=== PATIENT | male | born 1990 | race Caucasian/White ===

== ENCOUNTER 2020-01-28 19:09 | Emergency (ER) | payer OTHER, SELFPAY ==
--- NOTE | ~2020-01-28 | CT_ITS ---
EXAMINATION: CT abdomen pelvis w con INDICATION: Left-sided abdominal and flank pain TECHNIQUE: Computed tomographic images of the abdomen and pelvis were obtained after the administrati on of 100 cc of Omnipaque 350 intravenous contrast. The dose-length product (DLP) was 836.51 mGy-cm. Automated exposure control and iterative reconstruction technique were employed. COMPARISON: None available FINDINGS: The lung bases are clear. The heart size is normal. Mild bilateral gynecomastia is noted. T he liver, spleen, pancreas, gallbladder, and adrenal glands are normal. Hypoattenuating lesions in th e kidneys, measuring up to 6 mm on the right, are too small to characterize but likely represent cyst s. No stones are identified in the kidneys, ureters, or bladder. There is no hydronephrosis or hydrou reter. The appendix is normal. No pathologically enlarged abdominal or pelvic lymph nodes are identif ied. There is no free intraperitoneal gas or evidence of bowel obstruction. There is widespread submu cosal fat deposition throughout the large and small bowel. There is subtle fat stranding near the mid descending colon of unclear significance as the adjacent bowel has a normal appearance. The visualiz ed osseous structures are unremarkable. IMPRESSION: 1. Subtle fat stranding near the mid descending colon of unclear significance given the normal-appear ing adjacent bowel. 2. Widespread submucosal fat deposition in the large and small bowel which is a nonspecific finding b ut can be seen in the setting of inflammatory bowel disease. Clinically correlate. Reviewed, dictated and finalized at location [facility]. IMPRESSION: 1. Subtle fat stranding near the mid descending colon of unclear significance g iven the normal-appearing adjacent bowel. 2. Widespread submucosal fat deposition in the large and small bowel which is a nonspecific finding but can be seen in the setting of inflammatory bowel disea se. Clinically correlate.
[2020-01-28 19:10] VITALS: BP 124/83; PULSE 89; RESP 18; TEMP 36.7; O2SAT 100
[2020-01-28 19:46] LABS: Basophils Absolute Auto 0.1 K/mm3 (0.0-0.1); Basophils Percent Auto 0.8 % (0.2-1.2); Eosinophils Percent Auto 0.4 % (0-4.4); Hematocrit 45.8 % (42.0-52.0); Hemoglobin 16.2 g/dL (14.0-18.0); Immature Granulocyte Absolute 0.01 K/mm3 (0.00-0.031); Immature Granulocyte Percent A 0.1 % (0-0.5); Lymphocytes Absolute Auto 2.03 K/mm3 (0.9-3.2); Lymphocytes Percent Auto 27.9 % (18.3-44.2); Mean Corpuscular HGB Conc 35.4 g/dl (32-36); Mean Corpuscular Hemoglobin 31.2 pg (26-34); Mean Corpuscular Volume 88.2 fl (80-100); Monocytes Absolute Auto 0.6 K/mm3 (0.1-0.6); Monocytes Percent Auto 8.1 % (2.6-8.5); Neutrophils Absolute Auto 4.6 K/mm3 (1.3-6.7); Neutrophils Percent Auto 62.7 % (45.5-73.1); Platelet Count Result 349 k/mm3 (150-375); Red Blood Count 5.19 M/mm3 (4.6-6.20); Red Cell Distribution Width 12.1 % (11.5-14.5); White Blood Count 7.3 K/mm3 (4.5-10.0)
[2020-01-28 19:58] LABS: Alanine Aminotransferase 105 U/L (4-50); Albumin Level 4.9 g/dL (3.5-5.1); Alkaline Phosphatase 73 U/L (38-126); Aspartate Amino Transferase 49 U/L (17-59); Blood Urea Nitrogen 12 mg/dL (9-20); Calcium 9.3 mg/dL (8.4-10.2); Carbon Dioxide 25 mmol/L (22-30); Chloride 102 mmol/L (98-107); Estimated Glomerular Filt Rate > 60; Glucose 79 mg/dL (75-110); Lipase 194 U/L (23-300); Potassium 3.9 mmol/L (3.4-5.0); Sodium 138 mmol/L (137-145)
[2020-01-28 20:04] LABS: Add Urine Microscopic? YES; Amorphous Sediment Urine Few; Appearance Urine Clear (Clear); Bacteria Urine Trace /hpf; Bilirubin Urine Negative (Negative); Blood Urine Negative (Negative); Color Urine Yellow (Yellow); Glucose Urine UA Negative (Negative); Ketones Urine Negative (Negative); Leukocyte Esterase Ur Negative LEU/UL (Negative); Mucus Urine Rare /lpf; Nitrate Urine Negative (Negative); Protein Urine Negative (Negative); RBC Urine 0-2 /hpf (0-2); WBC Urine 0-3 /hpf
[2020-01-28 22:03] VITALS: BP 120/78; PULSE 74; RESP 20; O2SAT 99
--- NOTE | 2020-01-28 22:42 | ED.ABDPAIN ---
HPI - Abdominal Pain General Chief Complaint: Abdominal Pain Stated Complaint: abd pain Time Seen by Provider: 01/28/20 22:37 History of Present Illness HPI narrative: Patient presents with his for left lower quadrant abdominal pain all day. He denies fever chills or sweats. He denies colitis diverticulitis, but does admit to history of kidney stones. He has no nausea or vomiting. No constipation or diarrhea. The pain radiates into his groin. He has a history of circumcision and wisdom tooth extraction. He does not smoke drink or do marijuana. He works at a [employer] and a [employer]. MD elicited complaint: abdominal pain Pertinent past history: kidney stones Onset (ago): hour(s) Pain Consistency: constant Location: L flank Severity: severe Radiation: other (Groin) Exacerbating factors: movement Relieving factors: nothing Context: confirms history of similar episodes Associated symptoms: denies other symptoms Treatments prior to arrival: other (None) Related Data Allergies Allergy/AdvReac Type Severity Reaction Status Date / Time cortisone Allergy Unknown Rash Verified 01/28/20 22:06 [facility] AdvReac Mild HEART Uncoded 02/05/14 18:47 RACES, LEGS GET NUMB Review of Systems Review of Systems: Narrative: CONSTITUTIONAL: Denies fever, chills, or sweats. EYES: Denies visual changes, redness, or discharge. ENT: Denies rhinorrhea, congestion, sore throat, or otalgia. CARDIOVASCULAR: Denies chest pain, palpitations, or edema. RESPIRATORY: Denies cough or dyspnea. GASTROINTESTINAL: He has abdominal pain, but not nausea, vomiting, or diarrhea. GENITOURINARY: Denies dysuria or hematuria. SKIN: Denies rash or itching. MUSCULOSKELETAL: Denies back pain, joint pain, or myalgia. NEUROLOGIC: Denies headache, numbness, or weakness. PSYCHIATRIC: Denies anxiety or depression. [facility] Social History Social History (Updated 01/28/20 @ 22:46 by Elida Medrano MD) Smoking status: Never smoker Alcohol intake: never Substance use: never Exam Narrative: Exam Narrative: GENERAL: Well-appearing, well-nourished, and in no acute distress. Charming young man HEAD: Normocephalic, atraumatic. EYES: PERRLA and EOMI. ENT: Nares clear, no rhinorrhea or epistaxis. Mucous membranes moist. NECK: Supple. CHEST: Clear to auscultation. No respiratory distress. HEART: Regular rate and rhythm. No murmur heard. Normal peripheral pulses. ABDOMEN: Soft, nontender, nondistended, normal active bowel sounds. EXTREMITIES: Normal range of motion. No edema. SKIN: Warm, dry, no rash. NEURO: No focal deficits. Alert and oriented x3. PSYCH: Normal mood and affect. Course Reevaluation(s) Reevaluation #1: Went in to discuss the CT findings with the patient and his . I thought he would have a kidney stone but there is fat stranding and some bowel changes. I explained to them that he might have inflammatory bowel disease. I will start steroids and antibiotics and send him to the GI specialist. And his says he has a lot of bowel problems and stomachaches. Date: 01/29/20 Time: 00:38 Vital Signs Vital signs: Vital Signs Temperature 98.1 F 01/28/20 19:10 Pulse Rate 89 01/28/20 19:10 Respiratory Rate 18 01/28/20 19:10 Blood Pressure 124/83 01/28/20 19:10 Pulse Oximetry 100 01/28/20 19:10 Temperature 98.1 F 01/28/20 19:10 Pulse Rate 74 01/28/20 22:03 Respiratory Rate 20 01/28/20 22:03 Blood Pressure 120/78 01/28/20 22:03 Pulse Oximetry 99 01/28/20 22:03 MDM - Abdominal Pain Differential Diagnosis Differential diagnosis: Likely calculus of kidney Medical Records Attestation: I reviewed the patient's medical records. Lab Data Attestation: I reviewed the patient's lab results. Result diagrams: 01/28/20 19:14 01/28/20 19:14 Labs: Lab Results 01/28/20 01/28/20 01/28/20 Range/Units 19:14 19:14 19:51 WBC 7.3 (4.5-
[2020-01-28] MEDS: SODIUM CHLORIDE 0.9% IV 1,000 ML 999 ML IV CONT (22:54)
[2020-01-28] MEDS: TAMSULOSIN HCL 0.4 MG CAPSULE PO (22:54)
[2020-01-28] MEDS: MORPHINE SULFATE 4 MG/ML INJ IV PUSH (22:55)
--- NOTE | 2020-01-28 23:21 | PC.NURSE ---
Patient being taken to CT.
[2020-01-29] MEDS: methylPREDNISolone SOD SUCC 125 MG VIAL IV PUSH (00:48)
[2020-01-29 01:49] VITALS: BP 113/76; PULSE 72; RESP 18; TEMP 36.7; O2SAT 97
== END 2020-01-29 01:45 | disposition home or self-care (01) ==
PROVIDERS: Emergency Provider Emergency Medicine
DX: K52.89 Other specified noninfective gastroenteritis and colitis (principal)
CPT/HCPCS: 36415; 74177; 80053; 81001; 83690; 85025; 96361; 96365; 96375; 99284; A9270; J0696; J2270; J2543; J2930; J7030; Q9967

== ENCOUNTER 2023-01-22 12:43 | Emergency (ER) | payer BC, SELFPAY ==
--- NOTE | ~2023-01-22 | CT_ITS ---
EXAMINATION: CT abdomen pelvis wo con DATE: 01/22/2023 14:03 INDICATION: Left flank pain TECHNIQUE: Computed tomography (CT) of the abdomen and pelvis was performed without intravenous contr ast. Automated exposure control and iterative reconstruction technique were employed. Exam dose: 821 .71 mGy-cm total exam DLP. COMPARISON: 01/28/2020 CT abdomen pelvis FINDINGS: The lung bases are clear. Normal heart size. No pericardial or pleural effusion. Minimal gy necomastia. Diffuse hepatic steatosis. No hepatic, splenic, pancreatic, adrenal space-occupying mass lesion is ev ident. Probable small renal cysts. Approximately 3 mm distal left ureteral calculus is noted, with mild hydroureteronephrosis on the lef t. No other urinary tract calculus. Normal caliber of the abdominal aorta. No intraperitoneal or retroperitoneal or pelvic mass lesion or adenopathy or ascites. The urinary bladder and prostate gland are unremarkable. Again noted is submucosal fat deposition throughout the colon which may be a sign of prior colitis or inflammatory bowel. Normal appendix. No bowel obstruction or intraperitoneal free air. Small fat-containing umbilical hernia. Included skeletal structures are unremarkable. IMPRESSION: 3 mm distal left ureteral calculus with mild proximal left hydroureteronephrosis Normal appendix Hepatic steatosis Probable small renal cysts Reviewed, dictated and finalized at [facility]. Reviewed, dictated and finalized at location A. IMPRESSION: 3 mm distal left ureteral calculus with mild proximal left hydrour eteronephrosis Normal appendix Hepatic steatosis Probable small renal cysts
[2023-01-22 12:45] VITALS: BP 124/91; PULSE 82; RESP 18; TEMP 36.6; O2SAT 99
[2023-01-22 13:20] LABS: Basophils Percent Auto 0.6 % (0.2-1.2); Eosinophils Absolute Auto 0.1 K/mm3 (0-0.3); Eosinophils Percent Auto 1.7 % (0-4.4); Hematocrit 44.3 % (42.0-52.0); Hemoglobin 15.3 g/dL (14.0-18.0); Immature Granulocyte Absolute 0.01 K/mm3 (0.00-0.031); Immature Granulocyte Percent A 0.2 % (0-0.5); Lymphocytes Absolute Auto 1.57 K/mm3 (0.9-3.2); Lymphocytes Percent Auto 29.9 % (18.3-44.2); Mean Corpuscular HGB Conc 34.5 g/dl (32-36); Mean Corpuscular Hemoglobin 30.8 pg (26-34); Mean Corpuscular Volume 89.1 fl (80-100); Mean Platelet Volume 9.8 fl (7.4-10.4); Monocytes Absolute Auto 0.9 K/mm3 (0.1-0.6); Monocytes Percent Auto 16.4 % (2.6-8.5); Neutrophils Absolute Auto 2.7 K/mm3 (1.3-6.7); Neutrophils Percent Auto 51.2 % (45.5-73.1); Platelet Count Result 302 k/mm3 (150-375); Red Blood Count 4.97 M/mm3 (4.6-6.20); Red Cell Distribution Width 12.4 % (11.5-14.5); White Blood Count 5.3 K/mm3 (4.5-10.0)
[2023-01-22 13:25] LABS: Alanine Aminotransferase 150 U/L (6-50); Albumin Level 4.9 g/dL (3.5-5.1); Alkaline Phosphatase 68 U/L (38-126); Anion Gap 7 mmol/L (8-16); Aspartate Amino Transferase 64 U/L (17-59); Bilirubin,Total 1.1 mg/dL (0.2-1.3); Blood Urea Nitrogen 15 mg/dL (9-20); Calcium 8.8 mg/dL (8.4-10.2); Carbon Dioxide 26 mmol/L (22-30); Chloride 107 mmol/L (98-107); Estimated CRCL calculation 112 ml/min; Estimated Glomerular Filt Rate > 60; Glucose 105 mg/dL (65-110); Lipase 162 U/L (23-300); Sodium 140 mmol/L (137-145)
[2023-01-22 13:37] LABS: Appearance Urine Turbid (Clear); Bacteria Urine None Seen /hpf; Bilirubin Urine 1+ (Negative); Blood Urine 3+ (Negative); Calcium Oxalate Crystals Urine Present /hpf; Color Urine Red (Yellow); Glucose Urine UA Negative (Negative); Ketones Urine Negative (Negative); Leukocyte Esterase Ur 2+ LEU/UL (Negative); Non Pathogenic Casts 0-2; Protein Urine 2+ mg/dL (Negative); RBC Urine >100 /hpf (0-2); Squamous Epithelial Cell Urine None seen /hpf (Few); Urobilinogen Urine 0.2 mg/dL (<2.0)
[2023-01-22 13:41] LABS: Add Urine Microscopic? YES
--- NOTE | 2023-01-22 14:09 | ED.ABDPAIN ---
HPI - Abdominal Pain General Chief Complaint: Abdominal Pain Stated Complaint: abdominal pain, groin pain Time Seen by Provider: 01/22/23 13:08 History of Present Illness HPI narrative: This is a 33-year-old male with past history of kidney stones, anxiety depression, who presents emergency department complaining of left-sided flank and abdominal pain for the past day. He states he woke earlier today and noticed significant left-sided flank pain, rated 8/10 radiating to the groin. The pain is intermittent and has since abated. He also noted blood in the urine beginning shortly after arrival to this emergency department. Related Data Allergies Allergy/AdvReac Type Severity Reaction Status Date / Time cortisone Allergy Unknown Rash Verified 01/22/23 13:03 Review of Systems Review of Systems: CONSTITUTIONAL: Denies fever, chills, or sweats. CARDIOVASCULAR: Denies chest pain, palpitations, or edema. RESPIRATORY: Denies cough or dyspnea. GASTROINTESTINAL: Left flank pain, suprapubic abdominal pain denies nausea, vomiting, or diarrhea. GENITOURINARY: Hematuria denies dysuria SKIN: Denies rash or itching. MUSCULOSKELETAL: Denies back pain, joint pain, or myalgia. NEUROLOGIC: Denies headache, numbness, dizziness, or weakness. PSYCHIATRIC: Denies anxiety or depression. [facility] Past Medical History Medical History (Updated 01/22/23 @ 15:01 by Twan Paulson MD) Kidney stones Surgical History Surgical History History of circumcision History of wisdom tooth extraction Family History Family History Grandparent Family history of malignant neoplasm of breast Social History Social History Smoking status: Never smoker Alcohol intake: never Substance use: never Exam Narrative: GENERAL: Well-developed, well-nourished, and in no acute distress. HEAD: Normocephalic, atraumatic. EYES: PERRLA and EOMI. CHEST: Clear to auscultation. No respiratory distress. No wheezes rales or rhonchi HEART: Regular rate and rhythm. No murmur heard. Normal peripheral pulses. ABDOMEN: Soft, mild suprapubic tenderness to palpation, no rebound or guard, nondistended, normal active bowel sounds. No CVA tenderness to palpation bilaterally EXTREMITIES: Normal range of motion. No edema. SKIN: Warm, dry, no rash. NEURO: No focal deficits. Alert and oriented x3. PSYCH: Normal mood and affect. Course Course Emergency Course: 14:45 - CT demonstrates a distal left, 3 mm ureteral stone. UA demonstrates RBCs and white blood cells but is not concerning for UTI. Chemistries demonstrate mild AST ALT elevation of 64/150 respectively but is not concerning for MIKE. CBC unremarkable. I discussed these findings with recommendations for pain medications antiemetics and tamsulosin with urology referral. Discussed return and emergency precautions including signs/symptoms of acute abdomen and intractable vomiting. The patient voiced understanding and is comfortable with the plan. All questions answered to his satisfaction Vital Signs Vital signs: Vital Signs Temperature 97.9 F 01/22/23 12:45 Pulse Rate 82 01/22/23 12:45 Respiratory Rate 18 01/22/23 12:45 Blood Pressure 124/91 H 01/22/23 12:45 Pulse Oximetry 99 01/22/23 12:45 Oxygen Delivery Room Air 01/22/23 12:45 Temperature 97.9 F 01/22/23 12:45 Pulse Rate 82 01/22/23 12:45 Respiratory Rate 18 01/22/23 12:45 Blood Pressure 124/91 H 01/22/23 12:45 Pulse Oximetry 99 01/22/23 12:45 Oxygen Delivery Room Air 01/22/23 12:45 MDM - Abdominal Pain MDM Narrative Medical decision making narrative: Plan: Labs, pain control, imaging, reassess Differential Diagnosis Differential diagnosis: Likely acute appendicitis, calculus of kidney, diverticulitis, gastroenteritis, pancreatitis, small
[2023-01-22 15:37] VITALS: BP 132/85; PULSE 66; RESP 15; O2SAT 100
== END 2023-01-22 15:38 | disposition home or self-care (01) ==
PROVIDERS: Emergency Provider Preventive Medicine Aerospace Medicine
DX: N13.2 Hydronephrosis with renal and ureteral calculous obstruction (principal); K76.0 Fatty (change of) liver, not elsewhere classified; Z87.442 Personal history of urinary calculi
CPT/HCPCS: 36415; 74176; 80053; 81001; 83690; 85025; 87086; 87088; 99284

== ENCOUNTER 2023-02-19 10:50 | Emergency (ER) | payer OTHER, BC, SELFPAY ==
--- NOTE | ~2023-02-19 | XR_ITS ---
XR foot LT min 3V 02/19/2023 11:13 INDICATION: Left foot pain PROCEDURE: 4 views left foot COMPARISON: No prior studies for comparison. FINDINGS: Fracture, dislocation or subluxation is not identified. The soft tissues appear within norm al limits. No foreign bodies are identified. IMPRESSION: 1: NO ACUTE BONE OR JOINT ABNORMALITY IDENTIFIED. Reviewed, dictated and finalized at location [facility].
[2023-02-19 11:03] VITALS: BP 129/78; PULSE 82; RESP 16; TEMP 37.1; O2SAT 100
--- NOTE | 2023-02-19 11:07 | ED.LOWEXIN ---
HPI - Extremity Injury (Lower) General Chief Complaint: Extremity Injury, Lower Stated Complaint: Left Ankle Pain Time Seen by Provider: 02/19/23 11:07 Source: patient Mode of arrival: ambulatory Limitations: no limitations History of Present Illness HPI Narrative: 33-year-old male presents with complaint of pain to lateral aspect of left foot. Patient states that he stepped off a curb and twisted foot in hole in pavement. Left foot twisted inward and patient states that he fell on his back like a turtle . Injury happened while at work. Ambulatory with limp. Range of motion in distal neurovascularly intact. All systems reviewed and negative except as noted above. Related Data Home Medications Medication Instructions Recorded Confirmed aripiprazole 5 mg tablet 5 mg PO DAILY 02/19/23 02/19/23 escitalopram oxalate 20 mg tablet 30 mg PO DAILY 02/19/23 02/19/23 trazodone 50 mg tablet 50 mg PO DAILY 02/19/23 02/19/23 Allergies Allergy/AdvReac Type Severity Reaction Status Date / Time cortisone Allergy Unknown Rash Verified 02/19/23 10:53 Review of Systems Review of Systems: CONSTITUTIONAL: Denies fever, chills, or sweats. EYES: Denies visual changes, redness, or discharge. ENT: Denies rhinorrhea, congestion, sore throat, or otalgia. CARDIOVASCULAR: Denies chest pain, palpitations, or edema. RESPIRATORY: Denies cough or dyspnea. GASTROINTESTINAL: Denies abdominal pain, nausea, vomiting, or diarrhea. GENITOURINARY: Denies dysuria or hematuria. SKIN: Denies rash or itching. MUSCULOSKELETAL: Denies back pain. Reports pain to lateral aspect of left foot with swelling. NEUROLOGIC: Denies headache, numbness, or weakness. PSYCHIATRIC: Denies anxiety or depression. All other systems reviewed are negative, except as documented in HPI. [facility] Past Medical History Medical History (Updated 02/19/23 @ 11:37 by Mary Solitario NP) Kidney stones Surgical History Surgical History History of circumcision History of wisdom tooth extraction Family History Family History Grandparent Family history of malignant neoplasm of breast Social History Social History Smoking status: Never smoker Alcohol intake: never Substance use: never Comments At time of signature, agree with nursing past medical, surgical, social and family history. There is no relevant family history pertinent to the presenting complaint. Exam Narrative: GENERAL: This is a well-nourished, well-developed patient, in no apparent distress. HEAD: normocephalic, atraumatic. EYES: PERRL. Sclera clear/white. Vision is grossly intact. EARS: External ears normal NOSE: External nose normal NECK: Neck supple, non-tender without lymphadenopathy, masses or thyromegaly. CARDIOVASCULAR: Regular rate and rhythm without murmurs, gallops, or rubs. RESPIRATORY: Clear to auscultation. Breath sounds equal bilaterally. No wheezes, rales, or rhonchi. SKIN: warm, Dry, intact with no suspicious lesions or rash, good texture and turgor. NEURO: awake, alert, and oriented to person, place and time. There were no obvious focal neurologic abnormalities. EXTREMITIES: Tenderness to 4th and 5th proximal aspect left metatarsal With mild swelling. Range of motion and distal neurovascularly intact. Course Course Level of Care: Express Care Visit Vital Signs Vital signs: Vital Signs Temperature 37.1 C 02/19/23 11:03 Pulse Rate 82 02/19/23 11:03 Respiratory Rate 16 02/19/23 11:03 Blood Pressure 129/78 02/19/23 11:03 Pulse Oximetry 100 02/19/23 11:03 Oxygen Delivery Room Air 02/19/23 11:03 Temperature 37.1 C 02/19/23 11:03 Pulse Rate 82 02/19/23 11:03 Respiratory Rate 16 02/19/23 11:03 Blood Pressure 129/78 02/19/23 11:03 Pulse Oximetry 100
== END 2023-02-19 11:45 | disposition home or self-care (01) ==
PROVIDERS: Emergency Provider Nurse Practitioner Family; PCP Internal Medicine
DX: S93.602A Unspecified sprain of left foot, initial encounter (principal); X50.9XXA Other and unspecified overexertion or strenuous movements or postures, initial encounter
CPT/HCPCS: 73630; 99213; G0463

== ENCOUNTER 2024-07-29 09:27 | Emergency (ER) | payer BC, SELFPAY ==
--- NOTE | ~2024-07-29 | XR_ITS ---
EXAMINATION: XR clavicle LT DATE: 07/29/2024 10:09 INDICATION: Left clavicle pain TECHNIQUE: AP and 10 degree cephalad angled AP views of the left clavicle were obtained. COMPARISON: none FINDINGS: Alignment is normal. No fracture. Left glenohumeral and acromioclavicular joint spaces are normal. Mi ld uncovertebral osteoarthritis in the visualized lower cervical spine. Soft tissues are unremarkable . Visualized portions of the upper lungs are clear. IMPRESSION: 1. No acute osseous abnormality. Reviewed, dictated and finalized at location A. [employer]
--- NOTE | 2024-07-29 09:31 | ED_ITS ---
HPI - Extremity Injury (Upper) General Chief Complaint: Unspecified Stated Complaint: Left Shoulder Pain Time Seen by Provider: 07/29/24 09:50 Source: patient, RN notes reviewed and old records reviewed Mode of arrival: ambulatory Limitations: no limitations History of Present Illness HPI narrative: Patient presents with complaints of left clavicle pain. He reports symptoms have been present for about a week. He denies any outright injury or trauma, but does report that he repeatedly puts heavy objects on that shoulder at work. He has full range of motion, but does report increased pain with range of motion of the shoulder. He has been taking Tylenol and ibuprofen for his symptoms with minimal relief. He voices no other concerns or complaints today. Related Data Home Medications ?Medication ?Instructions ?Recorded ?Confirmed ?Last Taken ?Type aripiprazole 5 mg tablet 5 mg PO DAILY 02/19/23 07/29/24 Unknown History escitalopram oxalate 20 mg tablet 30 mg PO DAILY 02/19/23 07/29/24 Unknown History Allergies Allergy/AdvReac Type Severity Reaction Status Date / Time cortisone Allergy Intermediate Rash Verified 07/29/24 10:00 Review of Systems Review of Systems: All systems reviewed & are unremarkable except as noted in HPI and below Constitutional: Constitutional: Reports no additional constitutional complaints ENT: Reports system reviewed and no additional complaints, except as documented Cardiovascular: Cardiovascular: Reports no additional cardiovascular complaints Respiratory: Respiratory: Reports no additional respiratory complaints Gastrointestinal: Gastrointestinal: Reports no additional gastrointestinal complaints Musculoskeletal: Musculoskeletal: Reports no additional musculoskeletal complaints and Reports as per HPI [facility] Past Medical History Medical History (Updated 07/29/24 @ 10:36 by Barbara Chaidez APRN) Kidney stones Surgical History Surgical History History of wisdom tooth extraction History of circumcision Family History Family History Grandparent Family history of malignant neoplasm of breast Social History Social History Smoking status: Never smoker Alcohol intake: never Substance use: never Comments At the time of my signature, I reviewed and agree with the nursing past medical, surgical, social, and family history. There is no relevant family history pertinent to the patient complaint. Exam Const: General: cooperative, no acute distress, alert and awake Orientation/consciousness: oriented to person, oriented to place and oriented to time HENMT: Head: normal to inspection Resp: Effort & Inspection: normal respiratory effort and able to speak in complete sentences Auscultation: clear to auscultation bilaterally, no crackles, no rales, no rhonchi and no wheezes Cardio: Palpation: normal PMI Rate: regular rate Rhythm: regular rhythm Heart sounds: S1 normal heart sound present and S2 normal heart sound present Neuro: General: oriented to person, oriented to place and oriented to time Cranial nerves: Yes CN's II-XII intact bilaterally Extrem: Left upper extremity: full ROM, normal capillary refill and shoulder/upper arm inspection abnormal, normal ROM and other (Midclavicular tenderness); no swelling Psych: Appearance: grossly normal Thought process: Normal thought process present Insight: Good insight present (Psych) Judgement: Good judgement present (Psych) Course Course Level of Care: Express Care Visit Vital Signs Vital signs: Reviewed MDM - Extremity Injury (Upper) MDM Narrative Medical decision making narrative: Negative x-ray. Supportive care measures discussed. Follow up with primary care provider. Discharge instructions reviewed with patient, as well as provided in writing per nursing staff. The instructions also include specific and strict return/GO TO THE ER as well as f/u information. All questions have been answered, and the patient deny any further questions with discharge and discharge plan. Some parts of this dictation were generated by voice recognition software and may contain typographical and/or grammatical inaccuracies. Differential Diagnosis Differential diagnosis: Likely other (Musculoskeletal pain, clavicle fracture) Medical Records Attestation: I reviewed the patient's medical records. Imaging Data Attestation: I personally reviewed and interpreted this imaging study as follows: My impression: No acute finding Radiologist's impression: [facility] [address] [place] [address] XRay Report Signed Patient: Yared Man : 1990 MR#: [id number] Age: 34 Acct:[id number] Loc: [facility] ADM Date: 07/29/24Attending Dr: Ordering Physician: Barbara Chaidez FNP Date of Service: 07/29/24 Procedure(s): XR clavicle LT Accession Number(s): [id number] cc: Barbara Chaidez FNP; ASSEMBLY MACHINE OFFBEARER PHYSICIAN~ EXAMINATION: XR clavicle LT DATE: 07/29/2024 10:09 INDICATION: Left clavicle pain TECHNIQUE: AP and 10 degree cephalad angled AP views of the left clavicle were obtained. COMPARISON: none FINDINGS: Alignment is normal. No fracture. Left glenohumeral and acromioclavicular joint spaces are normal. 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 Soft tissues are unremarkable. Visualized portions of the upper lungs are clear. IMPRESSION: 1. No acute osseous abnormality. Reviewed, dictated and finalized at location A. SALESPERSON Dictated By: Ad Escobar MD 07/29/24 1024 Signed By: <Electronically signed by Ad Escobar MD in OV> Discharge Plan Discharge Clinical Impression: Musculoskeletal pain Patient Disposition: Home, Self-Care Condition: Stable Instructions: Antibiotic Form, P.R.I.C.E. Treatment (ED) Additional Instructions: Take medications as prescribed. Follow with primary care provider. Emergency department for new or worse symptoms Patient Language: Azeri Prescriptions: New naproxen [Naprosyn] 500 mg tablet 500 mg PO BID PRN (Reason: pain) Qty: 30 0RF No Action escitalopram oxalate 20 mg tablet 30 mg PO DAILY aripiprazole 5 mg tablet 5 mg PO DAILY Follow-up/Referrals: PHYSICIAN,ASSEMBLY MACHINE OFFBEARER [Primary Care Provider] - Stand Alone Forms: Work/School Release IP Time of Disposition: 10:37
[2024-07-29 09:35] VITALS: BP 135/83; PULSE 86; RESP 16; TEMP 37.1; O2SAT 99
== END 2024-07-29 10:40 | disposition home or self-care (01) ==
PROVIDERS: Emergency Provider Nurse Practitioner Family
DX: M25.512 Pain in left shoulder (principal)
CPT/HCPCS: 73000; 99213; G0463